=== PATIENT | male | born 2000 | race Caucasian/White ===

== ENCOUNTER → 2020-12-25 11:47 | Outpatient (CLI) | payer OTHER, SELFPAY ==
[2020-12-12 15:42] VITALS: BMI 24.0
--- NOTE | 2020-12-25 11:50 | ECHOD_ITS ---
Reason For Study: CHEST PAIN Procedure This was a 2D Doppler, Color Flow transthoracic echocardiogram. The exam was of adequate technical quality. Exam performed in department. Left Ventricle Normal LV size. Left ventricular systolic function is normal. The estimated ejection fraction is 60 %. No evidence for diastolic dysfunction. No regional wall motion abnormalities noted. Right Ventricle Normal RV size. Normal systolic function. Atria Normal left atrium. Normal right atrium. No doppler evidence for ASD. Mitral Valve There is no mitral annular calcification. Mild diffuse mitral valve thickening. Mild mitral valve prolapse. Trivial mitral valve insufficiency. Tricuspid Valve Normal tricuspid valve. Trivial tricuspid valve insufficiency. Right ventricular systolic pressure estimated to be 27 mmHg. Aortic Valve Trisinus/trileaflet aortic valve. Normal aortic valve. Pulmonic Valve Normal pulmonic valve. Trivial pulmonic valve insufficiency. Great Vessels Normal sized aortic root. Pericardium/Pleural No pericardial effusion. MMode/2D Measurements & Calculations LVIDd: 5.5 cm IVSd: 0.74 cm Ao root diam: 2.8 cm LVIDs: 3.7 cm LVPWd: 0.83 cm RVDd: 3.7 cm FS: 33.0 % LAV(MOD-bp): 43.8 ml LA A4 area: 15.9 cm2 LA dimension(2D): 2.3 cm LAV(MOD-bp) Indexed: 20.7 ml/m2 LAV(MOD-sp2): 41.5 ml LAV(MOD-sp4): 44.0 ml RA A4 area: 17.7 cm2 Time Measurements MV dec time: 0.12 sec Doppler Measurements & Calculations MV E max marcos: 117.3 cm/sec Lat Peak E' Marcos: 14.5 cm/sec Med Peak E' Marcos: 15.0 cm/sec MV A max marcos: 61.6 cm/sec E/E' lat: 8.1 E/E' med: 7.8 MV E/A: 1.9 Ao V2 max: 123.9 cm/sec LV V1 max: 108.9 cm/sec PA V2 max: 115.8 cm/sec Ao max P.1 mmHg LV V1 max P.7 mmHg TR max marcos: 244.6 cm/sec TR max P.9 mmHg ECHO/Echo Complete Interpretation Summary Left ventricular systolic function is normal. The estimated ejection fraction is 60 %. Mild diffuse mitral valve thickening. Mild mitral valve prolapse. Trivial mitral valve insufficiency. Trivial tricuspid valve insufficiency. Trivial pulmonic valve insufficiency. Right ventricular systolic pressure estimated to be 27 mmHg. No evidence for diastolic dysfunction. Ordering Physician: George Espionza Referring Physician: Rox Mehta Performed By: Nay López, THERON, RVT
--- NOTE | 2020-12-25 18:24 | STRESSREP_ITS ---
Stress Test Report Date: 12-25-2020 Procedure: Exercise tolerance test Indications: Chest pain Consent: Per the patient Procedure: The patient exercised on a Gregory protocol for 12 minutes completing stage IV achieving a peak heart rate of 181 bpm (90% predicted maximal heart rate) with a peak blood pressure 182/78 mmHg and a peak MET capacity of approximately 13 MET's. The baseline ECG demonstrated sinus bradycardia; septal CT of indeterminate age cannot be excluded; nonspecific T wave abnormality. The peak exercise ECG demonstrated no obvious ECG changes. There were no cardiac dysrhythmias pretest, during exercise, or recovery. The functional capacity was considered good. The patient had no complaint of chest discomfort during exercise or recovery. The examination was discontinued secondary to dyspnea; leg discomfort. Impression: 1. Technically adequate (percent predicted maximal heart rate greater than 85%) exercise tolerance test 2. Peak exercise ECG with no obvious ECG changes 3. There were no cardiac dysrhythmias during exercise or recovery This note was generated with [employer] software. It may contain incorrect words, spelling, and punctuation that were not noted in checking the note before signing.
== END ==
PROVIDERS: PCP Nurse Practitioner Family; Referring Provider Internal Medicine Cardiovascular Disease; Visit Provider Internal Medicine Cardiovascular Disease
DX: I77.4 Celiac artery compression syndrome (principal); R07.9 Chest pain, unspecified; K21.9 Gastro-esophageal reflux disease without esophagitis
CPT/HCPCS: 93017; 93306

== ENCOUNTER → 2021-05-16 08:03 | Outpatient (CLI) | payer OTHER, SELFPAY ==
--- NOTE | 2021-05-16 08:07 | CT_ITS ---
STUDY: CTA ABDOMEN AND PELVIS WITH CONTRAST REASON FOR EXAM: Male, 21 years old. 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 3-D reconstruction of the aorta and the major visceral branches was obtained. RADIATION DOSAGE (If Supplied By Facility): CTDIvol = ( 23.55 ) mGy, DLP = ( 623.66 ) mGycm TECHNIQUE: Transaxial images were obtained from the dome of the diaphragm to the symphysis pubis without oral contrast. IV 100mL Isovue-370 was administered. Sagittal and coronal images were reconstructed. Individualized dose optimization techniques were used for this CT. COMPARISON: None. FINDINGS: The visualized lung bases are unremarkable. The visualized portions of the heart are within normal limits. Normal liver. Normal gallbladder and extrahepatic biliary system. Normal spleen. Normal pancreas. Normal bilateral adrenal glands. Normal right kidney. Normal left kidney. Normal visualized stomach. Normal small intestine. Normal colon. The appendix is visualized and appears normal. Normal abdominal aorta. There are 2 right renal arteries. Normal inferior vena cava. Normal retroperitoneum. Normal urinary bladder. Normal abdominal wall. Normal osseous structures. CT/CT ANGIO ABD&PEL W/O&W/DYE IMPRESSION: Normal enhanced CT of the abdomen and pelvis. Electronically Signed: Larry Schilling MD at 10:01 EDT , Service support ,
== END ==
PROVIDERS: PCP Nurse Practitioner Family; Referring Provider Surgery Vascular Surgery; Visit Provider Surgery Vascular Surgery
DX: I70.213 Atherosclerosis of native arteries of extremities with intermittent claudication, bilateral legs (principal); I77.1 Stricture of artery; I77.4 Celiac artery compression syndrome
CPT/HCPCS: 74174; Q9967

== ENCOUNTER 2025-03-23 13:26 | Day surgery (SDC) | payer SELFPAY ==
--- NOTE | 2025-03-20 16:53 | PAT.ANESEVAL ---
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 When Was Last Pacemaker Check QUESTION #4 FULL TEXT: You/Your Family Experience fever (hyperthermia) with Anesthesia Last Oral Intake Last Oral intake: Last Oral Intake NPO since Meds taken in AM with sips of water? Meds patient instructed to take am of surgery PONV PONV - automation manager: PONV - automation manager Female No 03/20/25 10:23 HX of Motion Sickness No 03/20/25 10:23 HX of N/V After Surgery No 03/20/25 10:23 Non-Smoker Yes 03/20/25 10:23 Duration of Surgery greater No 03/20/25 10:23 than 60 minutes Number of Risk Factors 1 03/20/25 10:23 PONV Score Low Risk 03/20/25 10:23 Height & Weight Height & Weight: Anesthesia: Height & Weight Height 6 ft 2 in 01/26/25 14:41 Respiratory Assessment Respiratory Assessment - automation manager: Respiratory Tract Infection Hx - automation manager Hx Respiratory Tract Infection No 03/20/25 10:23 STOP Sleep Apnea STOP Sleep Apnea - automation manager: STOP Sleep Apnea - automation manager Hx Hypertension No 03/20/25 10:23 Hx Sleep Apnea No 03/20/25 10:23 CPAP BIPAP Do you snore loudly (louder No 03/20/25 10:23 than talking or can be heard Do you often feel tired/ No 03/20/25 10:23 fatigued/ sleepy during daytime? Has anyone observed you stop No 03/20/25 10:23 breathing during sleep? STOP Results Negative 03/20/25 10:23 QUESTION #5 FULL TEXT : Do you snore loudly (louder than talking or can be heard through closed doors)? 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 Specify any problems Hx of Preganancy in last 3 N/A 03/20/25 10:23 Months Nurse Filling Out Transfusion [email or web address] 03/20/25 10:23 & Questions: Date: 03/20/25 03/20/25 10:23 Time: 10:24 03/20/25 10:23 Patient unable to answer at this time (ie. confused, unrespo /Reproduction History /Reproductive History - automation manager: /Reproductive Hx- automation manager Hx Now Gestational Age (in weeks): EDC: Hx Hx Para Hx Section SAB PFSH Medical History (Updated 03/20/25 @ 10:26 by Blake Fischer) Anxiety Dietary restriction Cardiology follow-up encounter History of echocardiogram History of stress test Celiac artery compression syndrome Chest pain GERD (gastroesophageal reflux disease) Home Medications ?Medication ?Instructions ?Recorded ?Last Taken ?Type cetirizine 10 mg tablet (Zyrtec) 10 mg PO QDAY PRN allergy symptoms 01/26/25 Unknown History Allergy/AdvReac Type Severity Reaction Status Date / Time gluten Allergy Diarrhea Verified 03/20/25 10:21 Family History Grandmother CAD (coronary artery disease) Other Diabetes Hypertension Kidney disease Social History Smoking Status: Never smoker alcohol intake: never substance use type: does not use caffeine: Yes Type: carbonated beverages and coffee Audit: Pertinent Findings Pertinent Findings Stress test pertinent findings: Stress test 12/25/2020. Peak exercise ECG with no obvious ECG changes. There were no cardiac dysrhythmias during exercise or recovery. Echo (EF%) pertinent findings: Echo 12/25/2020. LV systolic function is normal. EF 60%. Mild mitral valve prolapse. No evidence of diastolic dysfunction. Recommendation Anesthesia Recommendation Anesthesia recommendation: OPTIMIZED for anesthesia
[2025-03-23] VITALS (9 sets, daily range): BP systolic 112–128; BP diastolic 58–76; PULSE 47–56; RESP 12–20; TEMP 36.6–36.7; O2SAT 97–100; BMI 25.2
[2025-03-23] MEDS: Lactated Ringers 1,000 ML 15 ML IV (13:54)
--- OUTSIDE RECORDS SUMMARY | 2025-03-23 13:58 | XMS RPT_ITS | CCD ---
Author Organization [facility] Care Team Providers Care Logistics Vice President Name Role Phone ADOLFOCORY Admitting Unavailable ADOLFOCORY Primary Care Unavailable ADOLFOCORY ROE Attending Unavailable ROX MACKEY Consulting Unavailable KEY, ROX Referring Unavailable PROVIDER, UNKNOWN Consulting Unavailable KEY, ROX Admitting Unavailable KEY, RXO Primary Care Unavailable KEY, ROX Consulting Unavailable KEY, ROX Attending Unavailable PROVIDER, UNKNOWN Consulting Unavailable Key CHIEF CLINICAL OFFICER-C, Rox Primary Care Provider [phone] Key CHIEF CLINICAL OFFICER-C, Rox Referring Provider Ilya CHIEF CLINICAL OFFICER-C, Erica Attending Provider Key CHIEF CLINICAL OFFICER, Rox Primary Care Unavailable Key CHIEF CLINICAL OFFICER, Rox Referring Unavailable Erica Caraballo Attending Unavailable Friend, Vinny Attending Unavailable Key CHIEF CLINICAL OFFICER, Rox Primary Care Unavailable Friend, Vinny Attending Unavailable Key CHIEF CLINICAL OFFICER, Rox Primary Care Unavailable Key CHIEF CLINICAL OFFICER, Rox Referring Unavailable Allergies Allergy Classification Reported Allergen(s) Allergy Type Date of Onset Reaction(s) Facility (1 source) Gluten Drug allergy (disorder) 03-20-2025 [facility] Repository Medications Current Medications Medication Drug Class(es) Dates Sig (Normalized) Sig (Original) cetirizine hydrochloride 10 mg oral tablet (1 source) Histamine-1 Receptor Antagonist Start: 01-26-2025 take 1 tablet by mouth once daily as needed Cetirizine (Zyrtec) 10 mg tablet Active 10 mg PO daily as needed January 26, 2025 12:00am famotidine 20 mg oral tablet (1 source) Histamine-2 Receptor Antagonist Start: 01-26-2025 take 1 tablet by mouth at bedtime Famotidine 20 mg tablet Active 20 mg PO AT BEDTIME 30 January 26, 2025 12:00am ibuprofen 200 mg oral tablet (1 source) Nonsteroidal Anti-inflammatory Drug Start: 12-09-2020 take 3 tablets by mouth every eight hours as needed Ibuprofen 200 mg tablet Active 600 mg PO Q8H as needed December 09, 2020 12:00am pantoprazole 40 mg delayed release oral tablet (1 source) Proton Pump Inhibitor Start: 01-26-2025 take 1 tablet by mouth once daily Pantoprazole 40 mg tablet,delayed release (DR/EC) Active 40 mg PO DAILY January 26, 2025 12:00am Completed/Discontinued Medications Medication Drug Class(es) Dates Sig (Normalized) Sig (Original) omeprazole 20 mg delayed release oral capsule (1 source) Proton Pump Inhibitor Start: 12-09-2020 End: 01-26-2025 take 1 capsule by mouth once daily Omeprazole 20 mg capsule,delayed release(DR/EC) Discontinued 20 mg PO DAILY December 09, 2020 12:00am January 26, 2025 2:33pm Problems Problem Classification Problem Date Documented Da te Episodic/Chronic Diabetes mellitus without complication (1 source) Type 2 diabetes mellitus without complications; Translations: [Type 2 diabetes mellitus without complications] Onset: 07-23-2024 Chronic Esophageal disorders (3 sources) Gastro-esophageal reflux disease without esophagitis; Translations: [Gastroesophageal reflux disease] Onset: 10-20-2024 12-09-2020 Chronic Essential hypertension (1 source) Essential (primary) hypertension; Translations: [Essential (primary) hypertension] Onset: 07-23-2024 Chronic Nonspecific chest pain (4 sources) Other chest pain; Translations: [Chest pain] Onset: 07-23-2024 Episodic Other circulatory disease (1 source) Celiac artery compression syndrome; Translations: [Celiac artery compression syndrome] Onset: 10-20-2024 Chronic Other circulatory disease (1 source) Celiac artery compression syndrome; Translations: [Celiac artery compression syndrome] 12-09-2020 Chronic Other gastrointestinal disorders (1 source) Constipation, unspecified; Translations: [Constipation, unspecified] Onset: 10-20-2024 Episodic Other lower respiratory disease (1 source) Dyspnea on exertion; Translations: [Other forms of dyspnea] 12-12-2020 Episodic Other screening for suspected conditions (not mental disorders or infectious disease) (3 sources) Encounter for screening for diseases of the blood and blood-forming organs and certain disorders involving the immune mechanism; Translations: [Encounter for screening for other metabolic disorders] Onset: 10-20-2024 Episodic Results Test Name Value Interpretation Reference Range Facility MR/PATRonaldo 03-20-2025 MR/PATHUMA [facility] Medical Records Department [address] [place] [address] PAT - Anesthesia 03/20/25 1653 MR#: [id number] Acct: [id number] Name: SURESH LARIOS Rep #: [id number] : 2000 From: Jessee Liang MD PCP: KALEIGH HarrisC Status:PRE SDC Y Race: C Location: EN Pre-Assessment Diagnosis/Proposed Procedure Planned Operative Procedure(s): EGD Anesthesia History Anesthesia History - brand director: Anesthesia History - brand director Hx Hospitalization No 03/20/25 10:23 Any Problems With Anesthesia No 03/20/25 10:23 Cholinesterase deficiency No 03/20/25 10:23 You/Your Family Experience No 03/20/25 10:23 fever (hyperthermia) with Relationship Recent Exposure to Contagious Disease Does patient have nerve No 03/20/25 10:23 stimulator Patient instructed to have device shut off --Does patient have Pacemaker or ICD? When Was Last Pacemaker Check QUESTION #4 FULL TEXT: You/Your Family Experience fever (hyperthermia) with Anesthesia Last Oral Intake Last Oral intake: Last Oral Intake NPO since Meds taken in AM with sips of water? Meds patient instructed to take am of surgery PONV PONV - brand director: PONV - brand director Female No 03/20/25 10:23 HX of Motion Sickness No 03/20/25 10:23 HX of N/V After Surgery No 03/20/25 10:23 Non-Smoker Yes 03/20/25 10:23 Duration of Surgery greater No 03/20/25 10:23 than 60 minutes Number of Risk Factors 1 03/20/25 10:23 PONV Score Low Risk 03/20/25 10:23 Height Weight Height Weight: Anesthesia: Height Weight Height 6 ft 2 in 01/26/25 14:41 Respiratory Assessment Respiratory Assessment - brand director: Respiratory Tract Infection Hx - brand director Hx Respiratory Tract Infection No 03/20/25 10:23 STOP Sleep Apnea STOP Sleep Apnea - brand director: STOP Sleep Apnea - brand director Hx Hypertension No 03/20/25 10:23 Hx Sleep Apnea No 03/20/25 10:23 CPAP BIPAP Do you snore loudly (louder No 03/20/25 10:23 than talking or can be heard Do you often feel tired/ No 03/20/25 10:23 fatigued/ sleepy during daytime? Has anyone observed you stop No 03/20/25 10:23 breathing during sleep? STOP Results Negative 03/20/25 10:23 QUESTION #5 FULL TEXT : Do you snore loudly (louder than talking or can be heard through closed doors)? Tobacco Use History Tobacco Use History - brand director: Tobacco Use History - brand director Tobacco Use Smoking Status Never smoker 03/20/25 10:23 Hx Tobacco Use No 03/20/25 10:23 Years Smoking Packs Smoked per Day Smoking Cessation Date was within the last 15 years Hx Smoking Cessation Date Hx Smoking Cessation Counseling Hematologic Medial History Hematologic Hx - brand director: Hematologic Medical Hx - proofer prepress Hx of Blood Transfusion No 03/20/25 10:23 Hx of Transfusion in last 3 No 03/20/25 10:23 Months Date of Last Transfusion (if within last 3 months) Ever experience any problems No 03/20/25 10:23 with transfusion(s)? Specify any problems Hx of Preganancy in last 3 N/A 03/20/25 10:23 Months Nurse Filling Out Transfusion [email or web address] 03/20/25 10:23 Questions: Date: 03/20/25 03/20/25 10:23 Time: 10:24 03/20/25 10:23 Patient unable to answer at this time (ie. confused, unrespo /Reproductio n History /Reproductiv e History - brand director: /Reproductiv e Hx- brand director Hx Now Gestational Age (in weeks): EDC: Hx Hx Para Hx Section SAB PFSH Medical History (Updated 03/20/25 @ 10:26 by Blake Fischer) Anxiety Dietary restriction Cardiology follow-up encounter History of echocardiogram History of stress test Celiac artery compression syndrome Chest pain GERD (gastroesophageal reflux disease) Home Medications ???Medication ???Instructions ???Recorded ???Last Taken ???Type cetirizine 10 mg tablet (Zyrtec) 10 mg PO QDAY PRN allergy symptoms 01/26/25 Unknown History Allergy/AdvReac Type Severity Reaction Status Date / Time gluten Allergy Diarrhea Verified 03/20/25 10:21 Family History Grandmother CAD (coronary artery disease) Other Diabetes Hypertension Kidney disease Social History Smoking Status: Never smoker alcohol intake: never substance use type: does not use caffeine: Yes Type: carbonated beverages and coffee Audit: Pertinent Findings Pertinent Findings Stress test pertinent findings: Stress test 12/25/2020. P (more content not included)... Normal [facility] Gastroenterology Visit Repor ton 01-26-2025 Gastroenterology Visit Report [facility] Gastroenterology [address] [place] [address] OFFICE VISIT Date of Service: 01/26/25 MR#: [id number] Acct: [id number] Name: SURESH LARIOS Rep #: [id number] : 2000 Provider: BETHANY verduzco Age/Sex: 24/M Location[place] [facility] Status: Signed Intake Vital Signs 12/12/20 15:42 01/26/25 14:41 Height 6 ft 2 in 6 ft 2 in Weight: 193 lb 6 oz BMI 24.8 BP 128/71 H Blood Pressure Location Lt brachial Position Sitting Pulse 54 L Pulse Source Monitor Pulse Oximetry (%) 95 Oxygen Delivery Method room air Intake Visit Reasons: Acid reflux Chief Complaint: abdominal pain Accompanied by: Allergies No Known Allergies Allergy (Verified 12/12/20 15:42) Medications ???Medication ???Instructions ???Recorded ???Confirmed ???Type ibuprofen 200 mg tablet 600 mg PO Q8H PRN 12/09/20 1 History cetirizine 10 mg tablet (Zyrtec) 10 mg PO QDAY PRN 01/26/25 5 History famotidine 20 mg tablet 20 mg PO QHS #30 tabs 01/26/25 Rx pantoprazole 40 mg tablet,delayed 40 mg PO DAILY #30 tabs 01/26/25 01/26/25 Rx release Nurse's Note: OV 01/26/25 Pt here to establish care with [facility]. Pt reports nausea, abdominal pain, gas, bloating and heartburn. He says the abdominal pain worsens when he has an empty stomach and when sitting. Tried omeprazole in the past and said it did seem to help. No prior hx of EGD or colonoscopy. Pt reports he was told he has a hiatal hernia. [facility] Medical History Celiac artery compression syndrome Chest pain GERD (gastroesophageal reflux disease) Family History Grandmother CAD (coronary artery disease) Other Diabetes Hypertension Kidney disease Social History Smoking Status: Never smoker alcohol intake: never substance use type: does not use caffeine: Yes Type: carbonated beverages and coffee HPI HPI Chief Complaint: abdominal pain Details: SURESH LARIOS, is a 24 M who presents to the office today for establishment with [facility] regarding concerns of hiatal hernia, epigastric abdominal pain, and constipation. He states that he has been under the care of a family chiropractor who has informed him of having a hiatal hernia and gluten sensitivity by exam. He states they were able to feel the hiatal hernia when bloated and put it back in place. He reports increased epigastric pain while sitting and having an empty stomach. He reports that eating relieves the pain for about 3 to 4 hours before it comes back. He reports taking omeprazole October to January this year and noted some improvement in symptoms. He reports nausea, worse in the AM, gas, and indigestion. He states that he has a history of constipation but now has complete BMs daily to every other day. He drinks plenty of water and takes a fiber supplement. He does eat a bowl of cereal before going to bed, after dinner. He denies difficulty chewing and swallowing, diarrhea, hematochezia, and melena. ROS Const Constitutional: Positive for fatigue; No chills, fever(s) or weight change Eyes Eyes: No change in vision ENT ENT: No abnormal hearing or difficulty swallowing Resp Respiratory: No cough Cardio Cardiology: No chest pain at rest, chest pain with exertion or leg pain with exertion Gastro GI: Positive for abdominal pain, bloating, constipation, heartburn, excessive flatus and nausea/dyspepsia; No belching, change in bowel habits, change in stool character, coffee ground emesis, cramping, diarrhea, difficulty swallowing, feeling full early, incontinent of stools, Vomiting blood/hematemesis, Blood in stool, loose stools, Black,tarry stools, pain with swallowing, vomiting or other Musc Musculoskeletal: No joint pain or leg pain with exertion Skin Skin: No yellowing of the eye or itchy eyes Neuro Neurology: No abnormal hearing Psych Psychiatric: No anxiety and No depression Endo Endocrine: Positive for fatigue; No cold intolerance, heat intolerance or weight change Aller/Imm Allergy/Immunologic: No food intolerance or itchy eyes Elvis/Lymp Hematologic/Lymphatic : No easy bleeding or easy bruising Exam Const General: cooperative, healthy appearing, comfortable and no acute distress Nutritional Appearance: average body habitus Orientation: alert and oriented x3 HENMT Head: normal to inspection Ears: hearing grossly normal bilaterally Eyes General: appearance normal, both eyes and all related structures Sclera: sclerae normal Neck Neck: normal visual inspection and full ROM Chest Chest palpation inspection: normal inspection of the chest Resp Effort Inspection: normal respiratory effo (more content not included)... Normal [facility] CBC + DIFFon 10-20-2024 Baso # 0.02 x10EE3/UL Normal 0.00 - 0.10 [facility] Comment on above: Performed By: #### 2 [id number] #### [facility],[address] [place] [address] Basophils/100 WBC (Bld) 0.3 % Normal 0.0 - 2.0 [facility] Comment on above: Performed By: #### 2 97542 #### [facility],[address] [place] [address] CBC + DIFF Normal [facility] Comment on above: Result Comment: CBC- COMPLETE BLOOD COUNT Performed By: #### 2 52532 #### [facility],[address] [place] [address] 39611 EO # 0.08 x10EE3/UL Normal 0.00 - 0.50 [facility] Comment on above: Performed By: #### 2 02185 #### [facility],[address] [place] [address] 39715 Eosinophils/100 WBC (Bld) 1.5 % Normal 0.0 - 7.0 [facility] Comment on above: Performed By: #### 2 30077 #### [facility],[address] [place] [address] Erythrocyte distribution width (RBC) [Ratio] 12.6 % Normal 12.0 - 15.6 [facility] Comment on above: Performed By: #### 2 55624 #### [place] [address] Hematocrit (Bld) [Volume fraction] 45.1 % Normal 40.0 - 52.0 [facility] Comment on above: Performed By: #### 2 15711 #### [place] [address] Hemoglobin (Bld) [Mass/Vol] 15.6 g/dL Normal 13.0 - 17.5 [facility] Comment on above: Performed By: #### 2 67893 #### [place] [address] Lymph # 1.85 x10EE3/UL Normal 0.80 - 2.80 [facility] Comment on above: Performed By: #### 2 93306 #### [place] [id number] Lymphocytes/100 WBC (Bld) 33.7 % Normal 20.0 - 45.0 [facility] Comment on above: Performed By: #### 2 75089 #### [place] [id number] MANUAL DIFF N/A Normal [facility] Comment on above: Performed By: #### 2 28578 #### [place] [id number] MCH (RBC) [Entitic mass] 29 pg Normal 27 - 33 [facility] Comment on above: Performed By: #### 2 92166 #### [facility],[address] [place] [address] 70351 MCHC 35 X10 3 Normal 32 - 36 [facility] Comment on above: Performed By: #### 2 51765 #### [facility],[address] [place] [address] 38719 MCV (RBC) [Entitic vol] 85 fL Normal 81 - 98 [facility] Comment on above: Performed By: #### 2 52383 #### [facility],[address] [place] [address] 36149 Webb # 0.37 x10EE3/UL Normal 0.20 - 1.00 [facility] Comment on above: Performed By: #### 2 88280 #### [facility],[address] [place] [address] 80672 MONOS % 6.8 % Normal 0.0 - 10.0 [facility] Comment on above: Performed By: #### 2 56328 #### [facility],[address] [place] [address] 71390 Morphology Sincere (Bld) [Interp] N/A Normal [facility] Comment on above: Performed By: #### 2 72212 #### [facility],[address] [place] [address] 09856 Neut # 3.18 x10EE3/UL Normal 1.50 - 7.10 [facility] Comment on above: Performed By: #### 2 55562 #### [facility],[address] [place] [address] 37320 Neutrophils/100 WBC (Bld) 57.8 % Normal 46.0 - 76.0 [facility] Comment on above: Performed By: #### 2 16512 #### [facility],[address] [place] [address] 55140 PLATELET 193 x10EE3/UL Normal 150 - 450 [facility] Comment on above: Performed By: #### 2 89033 #### [facility],[address] [place] [address] 47166 Platelet mean volume (Bld) [Entitic vol] 9.0 fL Normal 6.4 - 10.5 [facility] Comment on above: Result Comment: AUTO MATED DIFFERENTIAL Performed By: #### 2 37721 #### [facility],[address] [place] [address] RBC 5.31 x 10EE6/UL Normal 4.50 - 6.00 [facility] Comment on above: Performed By: #### 2 60314 #### [facility],[address] [place] [address] WBC 5.5 x 10EE3/UL Normal 4.5 - 10.8 [facility] Comment on above: Performed By: #### 2 08957 #### [facility],[address] [place] [address] CMP with eGFRon 10-20-2024 AGE 24 years Normal [facility] Comment on above: Performed By: #### 2 94917 ####[place] [id number] Albumin [Mass/Vol] 4.6 g/dL Normal 3.4 - 5.0 [facility] Comment on above: Performed By: #### 2 20855 ####[facility],[address] [place], [place] [id number] Albumin/Globulin [Mass ratio] 1.4 {ratio} Normal 0.9 - 1.6 [facility] Comment on above: Performed By: #### 2 54466 ####[place] [address] ALK PHOS 93 U/L Normal 46 - 116 [facility] Comment on above: Performed By: #### 2 82033 ####[place] [id number] ALT [Catalytic activity/Vol] 27 U/L Normal 16 - 63 [facility] Comment on above: Performed By: #### 2 49034 ####[facility],[address] [place] [address] 54835 Anion gap [Moles/Vol] 12 mmol/L Normal 10 - 20 [facility] Comment on above: Performed By: #### 2 65886 ####[facility],[address] [place] [address] 71183 AST [Catalytic activity/Vol] 20 U/L Normal 15 - 37 [facility] Comment on above: Performed By: #### 2 59206 ####[facility],[address] [place] [address] 75057 B/C RATIO 13 ratio Normal 0 - 30 [facility] Comment on above: Performed By: #### 2 18123 ####[facility],[address] [place] [address] 26422 Bilirubin [Mass/Vol] 0.6 mg/dL Normal 0.2 - 1.0 [facility] Comment on above: Performed By: #### 2 53952 ####[facility],[address] [place] [address] 34500 Calcium [Mass/Vol] 9.6 mg/dL Normal 8.5 - 10.1 [facility] Comment on above: Performed By: #### 2 40670 ####[facility],[address] [place] [address] 70342 Chloride [Moles/Vol] 103 mmol/L Normal 98 - 107 [facility] Comment on above: Performed By: #### 2 44467 ####[facility],[address] [place] [address] 73954 CMP with eGFR Normal [facility] Comment on above: Result Comment: COMP REHENSIVE METABOLIC PANEL Performed By: #### 2 72481 ####[facility],[address] [place] [address] 29150 CO2 [Moles/Vol] 30.0 mmol/L Normal 21.0 - 32.0 [facility] Comment on above: Performed By: #### 2 55268 ####[facility],[address] [place] [address] 23500 Creatinine [Mass/Vol] 0.94 mg/dL Normal 0.70 - 1.30 [facility] Comment on above: Performed By: #### 2 80754 ####[facility],[address] [place] [address] 83466 GFR/1.73 sq M.predicted among non-blacks MDRD (S/P/Bld) [Vol rate/Area] mL/min/{1.73_m2} Normal 60 - 999 [facility] Comment on above: Performed By: #### 2 29549 ####[place] [id number] Result Comment: ACCO RDING TO THE NATIONAL KIDNEY DISEASE EDUCATION PROGRAM(NKDE), A NORMAL eGFR IS A VALUE GREATER THAN OR EQUAL TO 60 ML/MIN/1.73 SQ METERS. CHRONIC KIDNEY DISEASE: <60mL/MIN/1.73 SQ METERS KIDNEY FAILURE: <15mL/MIN/1.73 SQ METERS THIS TEST SHOULD ONLY BE USED FOR PATIENTS 18 YEARS OF AGE AND OLDER. Globulin (S) [Mass/Vol] 3.3 g/dL Normal 1.5 - 3.8 [facility] Comment on above: Performed By: #### 2 16926 ####[facility],[address] [place] [address] 00695 Glucose [Mass/Vol] 87 mg/dL Normal 74 - 106 [facility] Comment on above: Performed By: #### 2 45465 ####[address] [address] Potassium [Moles/Vol] 4.3 mmol/L Normal 3.5 - 5.1 [facility] Comment on above: Performed By: #### 2 50472 ####[facility],[address] [place] [address] 92575 Protein [Mass/Vol] 7.9 g/dL Normal 6.4 - 8.2 [facility] Comment on above: Performed By: #### 2 11570 ####[facility],[address] [place] [address] 04742 Sodium [Moles/Vol] 141 mmol/L Normal 136 - 145 [facility] Comment on above: Performed By: #### 2 82777 ####[facility],[address] [place] [address] 14811 Urea nitrogen [Mass/Vol] 12 mg/dL Normal 7 - 18 [facility] Comment on above: Performed By: #### 2 36279 ####[facility],[address] [place] [address] 93814 LIPID PROFILEon 10-20-2024 Cholesterol [Mass/Vol] 157 mg/dL Normal 0 - 240 [facility] Comment on above: Performed By: #### 2 39018 #### [facility],[address] [place] [address] 48145 Cholesterol in HDL [Mass/Vol] 48 mg/dL Normal 40 - 60 [facility] Comment on above: Performed By: #### 2 65264 #### [facility],[address] [place] [address] 76180 Cholesterol in LDL [Mass/Vol] 82 mg/dL Normal 0 - 129 [facility] Comment on above: Performed By: #### 2 39348 #### [facility],[address] [place] [address] 69423 Cholesterol.total/Cho lesterol in HDL [Mass ratio] 3.3 {ratio} Normal 0.0 - 5.0 [facility] Comment on above: Performed By: #### 2 74967 #### [facility],[address] [place] [address] 89110 Lipid 1996 panel Normal [facility] Comment on above: Result Comment: LIPI D PROFILE Performed By: #### 2 13524 #### [facility],[address] [place] [address] 46081 Triglyceride [Mass/Vol] 133 mg/dL Normal 0 - 150 [facility] Comment on above: Performed By: #### 2 93046 #### [facility],[address] [place] [address] 52713 ED MED ADMINISTRATION DETAIL on 07-24-2024 ED MED ADMINISTRATION DETAIL Twister Doffer Medication Administration Record [address] [address] [id number] 07/23/2024 Patient: SURESH LARIOS Sex: Male : 2000 Age: 24y MEASUREMENTS: Wt: 83.9 kg, Ht/Rudy: 73.0 in, BMI: 24.41 ALLERGIES: No known drug allergies Medication Ordered Medication Administration Date/Time GI Cocktail PO Completed 23:23 07/23/2024 Jose Ramon OlivaPGuadalupe 1 of 2 Twister Doffer Medication Ordered Medication Administration Date/Time Order Comments: 23:23 07/23/2024: GI cockt ail will not scan. Orde r comp lete; medi catio n given to kellee nt. Beth Bach 2 of 2 Normal [facility] ED NURSES CLINICAL NOTEon ED NURSES CLINICAL NOTE Nurse Narrative Nurse Clinical Narrative [address] [address] [id number] 07/23/2024 Patient: SURESH LARIOS Sex: Male : 2000 Age: 24y Disposition: Discharge to Home Disposition Decision Time: 23:52 07/23/2024 Departure Time: 00:04 07/24/2024 TRIAGE Arrived by private vehicle. Historian: patient. Accompanied by family. Triage time: 21:07 07/23/2024. Acuity: LEVEL 2. Chief Complaint: CHEST PAIN and (Left sided chest pain, radiating slightly to left and right). This started today. Onset. (about 5 PM). The patient has had difficulty breathing. No sweating episodes, nausea, vomiting, fever or cough. SEPSIS SCREEN: NEGATIVE. SIRS criteria negative. -- 21:13 07/23/24 CHIKA Simmons R.N. 21:07/23/24. BP: 131/76 MAP: 94. HR: 50. RR: 16. O2 saturation: 99% Temperature: 97.7 F. Pain level now 4/10. -- 21:07/23/24 CHIKA Simmons R.N. Measurements: 21:07/23/24 Wt: 83.9 kg, Ht/Rudy: 73.0 in, BMI: 24.41 -- 21:07/23/24 CHIKA Simmons R.N. Medications: no known home medications -- 21:13 07/23/24 CHIKA Simmons R.N. Protonix 40 mg tablet,delayed release: 1 tablet once a day. Started 07/23/2024. Stopped 08/20/2024. -- 23:47 07/23/24 CHIKA Mata D.O.Updated through eRx -- 23:50 07/23/24 CHIKA Mata D.O. 1 of 5 Nurse Narrative Protonix 40 mg tablet,delayed release: 1 tablet once a day. Started 07/23/2024. Stopped 07/23/2024. -- 23:50 07/23/24 CHIKA Mata D.O. Protonix tablet,delayed release 40 40: 1 tablet once a day. -- 23:50 07/23/24 CHIKA Mata D.O. Allergies: no known drug allergies -- 21:10 07/23/24 CHIKA Simmons R.N. Problems: Hiatal Hernia -- 21:07/23/24 CHIKA Simmons R.N. Gastroesophageal Reflux Disease -- 21:10 07/23/24 CHIKA Simmons R.N. Hypertension -- 21:10 07/23/24 CHIKA Simmons R.N. ADDITIONAL SURGERIES: no known surgical history -- 21:13 07/23/24 CHIKA Simmons R.N. History 21:07/23/24. SOCIAL HX: Never smoker. No alcohol use or drug use. The patient has not traveled outside the [place] Infectious disease exposure: No infectious disease exposure. ABUSE ASSESSMENT: The patient answered yes to the question(s) Do you feel safe in your home? and no to the question(s) Are you afraid to go home?. SELF HARM ASSESSMENT: Self harm assessment was performed. The patient answered no to the question(s) Have you recently felt down, depressed, or hopeless? and Do you have thoughts of harming or killing yourself?. FALL RISK ASSESSMENT: Fall risk assessment completed. No risk factors identified. -- 21:13 07/23/24 CHIKA Simmons R.N. PHYSICAL ASSESSMENT 21:07 07/23/24. BP: 131/76 MAP: 94. HR: 50. RR: 16. O2 saturation: 99% Temperature: 97.7 F. Pain level now 11/23. -- 00:13 07/24/24 CHIKA Manriquez R.N. 21:12 07/23/24. HR: 53 bpm. O2 saturation: 100%. -- 00:13 07/24/24 CHIKA Manriquez R.N. 2 of 5 Nurse Narrative 21:25 07/23/24. Ambulatory to room. GENERAL / NEURO / PSYCH: Alert. Oriented X 4. HEENT: Mucous membranes are pink. RESPIRATORY: Respirations not labored. Chest nontender. Breath sounds within normal limits. CVS: Normal sinus rhythm noted. Heart sounds within normal limits. Pulses within normal limits. EXTREMITIES: No lower extremity edema. SKIN: Skin is warm and dry. Skin is non-tender. -- 00:14 07/24/24 CHIKA Manriquez R.N. NURSING PROGRESS NOTES 21:07 07/23/24. BP: 131/76 MAP: 94. HR: 50. RR: 16. O2 saturation: 99% Temperature: 97.7 F. Pain level now 11/23. -- 03:27 07/24/24 CHIKA Manriquez R.N. 21:08 07/23/24. Site #1 started via IV in the right antecubital space with an 18g angiocath with aseptic technique and good blood return; 1 attempt. Blood drawn: rainbow set tube(s). Labeled in the presence of the patient and sent to the lab. Saline lock flushed with 5 mL saline. -- 21:12 07/23/24 EST Michael Morales E.M.T.-P. 21:12 07/23/24. HR: 53 bpm. O2 saturation: 100%. -- 03:27 07/24/24 EST Rox Manriquez R.N. 21:13 07/23/24. 12-LEAD EKG: EKG time: (21:05 07/23/2024). 12-Lead EKG was ordered, performed by a proced tech and shown to the ED physician. -- 21:13 07/23/24 EST Michael Morales E.M.T.-P. 21:17 07/23/24. HR: 53 bpm. O2 saturation: 100%. -- 03:27 07/24/24 EST Rox Manriquez R.N. 21:21 07/23/24. BP: 121/74 MAP: 88 mmHg. HR: 50 bpm. -- 03:27 07/24/24 EST Rox Manriquez R.N. 21:22 07/23/24. HR: 56 bpm. O2 saturation: 100%. -- 03:27 07/24/24 EST Rox Manriquez R.N. 21:25 07/23/24. ED physician at the patient's bedside. -- 21:25 07/23/24 EST Naz Simmons R.N. 21:27 07/23/24. HR: 65 bpm. O2 saturation: 100%. -- 03:27 07/24/24 EST Rox Manriquez R.N. 21:32 07/23/24. HR: 51 bpm. O2 saturation: 98%. -- 03:27 07/24/24 EST Rox Manriquez R.N. 21:36 07/23/24. BP: 133/85 MAP: 93 mmHg. HR: 50 bpm. -- 03:27 07/24/24 EST Rox (more content not included)... Normal [facility] ED ORDER SHEET (CPOE ONLY)on 07-24-2024 ED ORDER SHEET (CPOE ONLY) Order Sheet Order Sheet [facility] [address] [place] [address] [id number] 07/23/2024 Patient: SURESH LARIOS Sex: Male : 2000 Age: 24y MEASUREMENTS: Wt: 83.9 kg, Ht/Rudy: 73.0 in, BMI: 24.41 ALLERGIES: No known drug allergies MEDICATION/IV/DRIP/FL UID ORDERS Order Description Priority Entered Acknowledged Completed GI Cocktail PO(Maalox Oral 30 22:59 07/23/2024 23:17 23:23 mL, lidocaine Lidocaine Viscous 2 Cory Mata, 07/23/2024 07/23/2024 % mucosal solution 5 mL, D.O. Michael Oliva, hyoscyamine ODT (0.125 mg E.M.T.-P. E.M.T.-P. disintegrating tablet) 0.125 mg) (NOW x1) Order Comments: 23:23 07/23/2024: GI cocktail will not scan. Order complete; medication given to patient. Beth OlivaTGuadalupe-PGuadalupe LAB ORDERS Order Description Priority Entered Acknowledged Collected Completed CBC w Diff Stat Stat 21:30 07/23/2024 21:45 07/23/2024 21:45 07/23/2024 Michael Holcomb Bryan Parker, D.O. E.M.T.-P. EGuadalupeMGuadalupeT.-P. Troponin-I Stat Stat 21:30 07/23/2024 21:45 07/23/2024 21:45 07/23/2024 Michael Holcomb Bryan Parker, D.O. E.M.T.-P. E.M.T.-P. 1 of 2 Order Sheet D-Dimer Stat Stat 21:30 07/23/2024 21:45 07/23/2024 21:45 07/23/2024 Michael Holcomb Bryan Parker, D.O. E.M.T.-P. E.M.T.-P. EKG - ED Stat Stat 21:30 07/23/2024 21:45 07/23/2024 21:45 07/23/2024 Michael Holcomb Bryan Parker, D.O. E.MGuadalupeT.-P. E.M.T.-PGuadalupe CMP Stat Stat 21:30 07/23/2024 21:45 07/23/2024 21:45 07/23/2024 Michael Holcomb Bryan Parker, D.O. E.M.T.-P. E.M.T.-PGuadalupe DIAGNOSTIC STUDY ORDERS Order Description Priority Entered Acknowledged Completed Chest 2V Stat Stat 21:30 07/23/2024 21:45 05:52 Cory Mata, 07/23/2024 07/24/2024 Rox Muir E.M.T.-PGuadalupe RGuadalupeNGuadalupe Reason for Study: Chest Pain STAFF ORDERS Order Description Priority Entered Acknowledged Collected Completed IV Saline Lock 21:30 07/23/2024 21:45 07/23/2024 21:45 07/23/2024 Michael Holcomb Bryan Parker, D.O. E.M.T.-Nataliia Medina-PGuadalupe [Electronically signed by Cory Mata D.O. (07/24/2024 02:04 EST)] 2 of 2 Normal [facility] ED PHYSICIAN CLINICAL REPORT on 07-24-2024 ED PHYSICIAN CLINICAL REPORT Narrative Physician Clinical Narrative [address] [address] [id number] 07/23/2024 Patient: SURESH LARIOS Sex: Male : 2000 Age: 24y Disposition: Discharge to Home Disposition Decision Time: 23:52 07/23/2024 Measurements Wt: 83.9 kg, Ht/Rudy: 73.0 in, BMI: 24.41 Initial Vital Sign Measured Time BP MAP HR RR O2Sat ETCO2 Temp Pain GCS RTS 21:07 07/23/2024 131/76 94 50 16 99% 97.7 F 4 Time Seen: 21:18 07/23/2024. Arrived- By private vehicle. Historian- patient. Independent historian- family. HISTORY OF PRESENT ILLNESS Chief Complaint: CHEST PAIN. This started just prior to arrival 5:00 pm. he was driving and he had substernal chest discomfort. Says a 4/10 seems to make it better worse feels like a tightness. He gets some shortness of breath he said it his left arm felt chilled. He still has a discomfort he presents to the emergency department. She has been under stress lately with his job he states he has a history of hypertension diabetes cholesterol he does not smoke. No nausea or vomiting. REVIEW OF SYSTEMS CONSTITUTIONAL: No fever or chills. RESPIRATORY: No cough. CVS: No pedal edema. NEUROLOGICAL: No fainting episodes. PAST HISTORY 1 of 9 Narrative Gastroesophageal Reflux Disease Hiatal Hernia Hypertension Surgeries: no known surgical history Medications: no known home medications Allergies: no known drug allergies SOCIAL HISTORY Never smoker. No alcohol use. ADDITIONAL NOTES The nursing notes have been reviewed. PHYSICAL EXAM Appearance: Alert. Oriented X3. No acute distress. Eyes: Eyes normal inspection. ENT: Ears normal. Nose normal. Neck: Normal inspection. CVS: Normal heart rate. Heart sounds normal. Respiratory: No respiratory distress. Breath sounds normal. Chest nontender. Abdomen: Soft and nontender. No mass. Skin: Skin warm and dry. Normal skin color. Normal skin turgor. Extremities: Extremities exhibit normal ROM. Neuro: Oriented X 3. No motor deficit. No sensory deficit. LABS, X-RAYS, AND EKG 2 of 9 Narrative 12-LEAD EKG: EKG time: 21:05 07/23/2024. Normal sinus rhythm. Rate: 52. Normal P waves. Normal ANKUR. Q waves in lead V1 and V2. No ST elevation. Interpretation time: 21:30 07/23/2024. Laboratory Tests: CBC + DIFF Final KIERRA: 07/23/2024 21:08:00 EST MsgRcvd: 07/23/2024 22:05 EST Lab Test Result Reference Status Received Comments 07/23/2024 22:05 CBC-COMPLETE CBC + DIFF Final EST BLOOD COUNT 07/23/2024 22:05 WBC 6.4 x 10/UL 4.5 - 10.8 Final EST 07/23/2024 22:05 RBC 5.23 x 10/UL 4.50 - 6.00 Final EST 07/23/2024 22:05 HEMOGLOBIN 15.3 g/dl 13.0 - 17.5 Final EST 07/23/2024 22:05 HEMATOCRIT 44.8 % 40.0 - 52.0 Final EST 07/23/2024 22:05 MCV 86 fl 81 - 98 Final EST 07/23/2024 22:05 MCH 29 pg 27 - 33 Final EST 07/23/2024 22:05 MCHC 34 X10 3 32 - 36 Final EST 07/23/2024 22:05 RDW/CV 13.0 % 12.0 - 15.6 Final EST 07/23/2024 22:05 PLATELET 183 x10/UL 150 - 450 Final EST 3 of 9 Narrative 07/23/2024 22:05 AUTOMATED MPV 8.0 fl 6.4 - 10.5 Final EST DIFFERENTIAL 38.2 % 07/23/2024 22:05 NEUT % 46.0 - 76.0 Final Below low normal EST 53.2 % 07/23/2024 22:05 LYMPH % 20.0 - 45.0 Final Above high normal EST 07/23/2024 22:05 MONOS % 6.3 % 0.0 - 10.0 Final EST 07/23/2024 22:05 EO % 2.0 % 0.0 - 7.0 Final EST 07/23/2024 22:05 BASO % 0.3 % 0.0 - 2.0 Final EST 3.41 x10/UL 07/23/2024 22:05 Lymph # 0.80 - 2.80 Final Above high normal EST 07/23/2024 22:05 Neut # 2.45 x10/UL 1.50 - 7.10 Final EST 07/23/2024 22:05 Webb # 0.41 x10/UL 0.20 - 1.00 Final EST 07/23/2024 22:05 EO # 0.13 x10/UL 0.00 - 0.50 Final EST 07/23/2024 22:05 Baso # 0.02 x10/UL 0.00 - 0.10 Final EST 07/23/2024 22:05 MANUAL DIFF N/A New Order EST 07/23/2024 22:05 MORPHOLOGY N/A New Order EST CMP with eGFR Final 4 of 9 Narrative KIERRA: 07/23/2024 21:08:00 EST MsgRcvd: 07/23/2024 22:08 EST Lab Test Result Reference Status Received Comments COMPREHENSIVE 07/23/2024 CMP with eGFR Final METABOLIC 22:08 EST PANEL 07/23/2024 SODIUM 142 mmol/l 136 - 145 Final 22:08 EST 07/23/2024 POTASSIUM 3.9 mmol/L 3.5 - 5.1 Final 22:08 EST 07/23/2024 CHLORIDE 101 mmol/L 98 - 107 Final 22:08 EST 07/23/2024 CO2 31.1 mmol/L 21.0 - 32.0 Final 22:08 EST 107 mg/dl 07/23/2024 GLUCOSE Above high 74 - 106 Final 22:08 EST normal 07/23/2024 BUN 16 mg/dl 7 - 18 Final 22:08 EST 07/23/2024 CREATININE 1.19 mg/dl 0.70 - 1.30 Final 22:08 EST 07/23/2024 AST/SGOT 16 U/L 15 - 37 Final 22:08 EST 07/23/2024 ALK PHOS 77 U/L 46 - 116 Final 22:08 EST 07/23/2024 CALCIUM 9.1 mg/dl 8.5 - 10.1 Final 22:08 EST (more content not included)... Normal [facility] ED SUPER BILLon 07-24-2024 ED SUPER BILL [address] [address] [id number] 07/23/2024 Patient: SURESH LARIOS Sex: Male : 2000 Age: 24y Item Professional Category Description Facility Code Code Quantity Fee Total Nurse/E/M EMERGENCY 170411 1 $0.00 $0.00 DEPARTMENT VISIT MODERATE SEVERITY (60757-93) Grand Total $0.00 Providers Cory Mata D.O. Chief Complaint CHEST PAIN. Principal Diagnosis Chest pain characterized as pressure. ICD-10 Codes 1 of 2 [facility] R07.89: Other chest pain 2 of 2 Normal [facility] ED VISIT SUMMARYon ED VISIT SUMMARY Visit Overview Visit Overview [address] [address] [id number] 07/23/2024 Patient: SURESH LARIOS Sex: Male : 2000 Age: 24y 07/24/2024 05:57 AM EST ED Arrival:21:04 07/23/2024 EST Status: Recent Travel:no Language:eng Adv Directive: Isolation Status: Ethnicity:N Fall Risk:no risk Infectious Disease Exposure:no Measurements:6'1 / 185.4 Self-Harm Status:risk Sepsis Screen:negative cm 185.0 lb / 83.9 kg Chief Complaint:CHEST PAIN, (about 5 PM), and (Left sided chest pain, radiating slightly to left and right) ALLERGIES No Known Drug Allergies HOME MEDICATIONS None PAST MEDICAL HISTORY / PROBLEMS Gastroesophageal Reflux Disease 1 of 3 Visit Overview Hiatal Hernia Hypertension PAST SURGICAL HISTORY No Surgeries SOCIAL HISTORY Smoking status: No Alcohol use: No Drug use: No ED COURSE MEDICATIONS GIVEN IN EMERGENCY DEPARTMENT IV SITE INFORMATION INTAKE OUTPUT REASSESMENT (most recent) 22:15 07/23/24. RESPIRATORY: No respiratory distress. Breath sounds normal. CVS: Normal sinus rhythm noted. SKIN: Skin color within normal limits. Friend at bedside. ED physician at the patient's bedside. VITAL SIGNS First Vitals Last Vitals Temp 21:07 07/23/24 97.7 F Temp 00:01 07/24/24 BP 21:07 07/23/24 131/76 BP 00:01 07/24/24 134/74 HR 21:07 07/23/24 50 HR 00:01 07/24/24 48 RR 21:07 07/23/24 16 RR 00:01 07/24/24 O2 Sat 21:07 07/23/24 99% O2 Sat 00:01 07/24/24 Pain 21:07 07/23/24 4 Pain 00:01 07/24/24 ETCO2 21:07 07/23/24 ETCO2 00:01 07/24/24 GCS 21:07 07/23/24 GCS 00:01 07/24/24 2 of 3 Visit Overview First Vitals Last Vitals RTS 21:07 07/23/24 RTS 00:01 07/24/24 PROCEDURES NURSING INTERVENTIONS LABS / STUDIES LABS / STUDIES ORDERED CBC w Diff Chest 2V CMP D-Dimer EKG - ED Troponin-I CLINICAL IMPRESSION CHEST PAIN CHARACTERIZED PRESSURE 3 of 3 Normal [facility] ED VITALS FLOW SHEETon 07-24 ED VITALS FLOW SHEET Vitals Vital Sign Flow Sheet [place] [address] [place] [address] [id number] 07/23/2024 [id number] Sex: Male : 2000 Age: 24y Measurements Wt: 83.9 kg, Ht/Rudy: 73.0 in, BMI: 24.41 Measured Time BP MAP HR RR O2Sat ETCO2 Temp Pain GCS RTS 00:01 07/24/2024 134/74 85 48 23:59 07/23/2024 58 98% 23:54 07/23/2024 52 97% 23:52 07/23/2024 120/80 82 48 23:49 07/23/2024 58 96% 23:44 07/23/2024 52 97% 23:39 07/23/2024 63 98% 23:37 07/23/2024 135/78 89 56 23:34 07/23/2024 54 97% 23:29 07/23/2024 51 97% 23:24 07/23/2024 54 96% 23:21 07/23/2024 129/78 98 53 23:19 07/23/2024 48 95% 23:14 07/23/2024 54 98% 23:09 07/23/2024 51 98% 1 of 3 Vitals Measured Time BP MAP HR RR O2Sat ETCO2 Temp Pain GCS RTS 23:06 07/23/2024 138/84 93 49 23:04 07/23/2024 50 95% 22:59 07/23/2024 52 98% 22:54 07/23/2024 48 98% 22:51 07/23/2024 132/73 83 49 22:49 07/23/2024 54 99% 22:44 07/23/2024 49 99% 22:39 07/23/2024 50 98% 22:36 07/23/2024 129/80 90 50 22:34 07/23/2024 50 99% 22:29 07/23/2024 49 100% 22:24 07/23/2024 51 98% 22:21 07/23/2024 125/78 88 48 22:19 07/23/2024 49 98% 22:14 07/23/2024 52 97% 22:09 07/23/2024 52 99% 22:06 07/23/2024 133/86 94 47 22:04 07/23/2024 57 99% 21:59 07/23/2024 50 97% 21:54 07/23/2024 55 98% 21:52 07/23/2024 131/78 86 48 21:49 07/23/2024 58 100% 21:42 07/23/2024 51 98% 21:37 07/23/2024 54 100% 21:36 07/23/2024 133/85 93 50 2 of 3 Vitals Measured Time BP MAP HR RR O2Sat ETCO2 Temp Pain GCS RTS 21:32 07/23/2024 51 98% 21:27 07/23/2024 65 100% 21:22 07/23/2024 56 100% 21:21 07/23/2024 121/74 88 50 21:17 07/23/2024 53 100% 21:12 07/23/2024 53 100% 21:07 07/23/2024 131/76 94 50 16 99% 97.7 F 4 3 of 3 Normal [facility] CBC + DIFFon 07-23-2024 Baso # 0.02 x10EE3/UL Normal 0.00 - 0.10 [facility] Comment on above: Performed By: #### 2 [id number] #### [facility],[address] [place] [address] Basophils/100 WBC (Bld) 0.3 % Normal 0.0 - 2.0 [facility] Comment on above: Performed By: #### 2 [id number] #### [facility],[address] [place] [address] CBC + DIFF Normal [facility] Comment on above: Result Comment: CBC- COMPLETE BLOOD COUNT Performed By: #### 2 45454 #### [facility],[address] [place] [address] EO # 0.13 x10EE3/UL Normal 0.00 - 0.50 [facility] Comment on above: Performed By: #### 2 99306 #### [facility],[address],[place] [address] Eosinophils/100 WBC (Bld) 2.0 % Normal 0.0 - 7.0 [facility] Comment on above: Performed By: #### 2 65968 #### [facility],[address] [place], [place] [phone] Erythrocyte distribution width (RBC) [Ratio] 13.0 % Normal 12.0 - 15.6 [facility] Comment on above: Performed By: #### 2 50654 #### [facility],[address] [place], [place] [phone] Hematocrit (Bld) [Volume fraction] 44.8 % Normal 40.0 - 52.0 [facility] Comment on above: Performed By: #### 2 07241 #### [facility],[address] [place] [address] Hemoglobin (Bld) [Mass/Vol] 15.3 g/dL Normal 13.0 - 17.5 [facility] Comment on above: Performed By: #### 2 92326 #### [facility],[address] [place] [address]45 Lymph # 3.41 x10EE3/UL High 0.80 - 2.80 [facility] Comment on above: Performed By: #### 2 98529 #### [facility],[address] [place] [address]272 Lymphocytes/100 WBC (Bld) 53.2 % High 20.0 - 45.0 [facility] Comment on above: Performed By: #### 2 64474 #### [facility],[address] [place] [address] MANUAL DIFF N/A Normal [facility] Comment on above: Performed By: #### 2 24274 #### [facility],[address] [place] [address] MCH (RBC) [Entitic mass] 29 pg Normal 27 - 33 [facility] Comment on above: Performed By: #### 2 67874 #### [facility],[address] [place] [address] MCHC 34 X10 3 Normal 32 - 36 [facility] Comment on above: Performed By: #### 2 31181 #### [facility],[address] [place] [address]14 MCV (RBC) [Entitic vol] 86 fL Normal 81 - 98 [facility] Comment on above: Performed By: #### 2 32720 #### [facility],[address] [place] [address] Webb # 0.41 x10EE3/UL Normal 0.20 - 1.00 [facility] Comment on above: Performed By: #### 2 84301 #### [facility],[address] [place] [address] MONOS % 6.3 % Normal 0.0 - 10.0 [facility] Comment on above: Performed By: #### 2 14936 #### [facility],[address] [place], [place] [phone] Morphology Sincere (Bld) [Interp] N/A Normal [facility] Comment on above: Performed By: #### 2 82400 #### [facility],[address] [place] [address] Neut # 2.45 x10EE3/UL Normal 1.50 - 7.10 [facility] Comment on above: Performed By: #### 2 40334 #### [facility],[address] [place], [place] [phone] Neutrophils/100 WBC (Bld) 38.2 % Low 46.0 - 76.0 [facility] Comment on above: Performed By: #### 2 47553 #### [facility],[address] [place], [place] [phone] PLATELET 183 x10EE3/UL Normal 150 - 450 [facility] Comment on above: Performed By: #### 2 67391 #### [facility],[address] [place] [address] Platelet mean volume (Bld) [Entitic vol] 8.0 fL Normal 6.4 - 10.5 [facility] Comment on above: Result Comment: AUTO MATED DIFFERENTIAL Performed By: #### 2 15852 #### [facility],[address] [place] [address] RBC 5.23 x 10EE6/UL Normal 4.50 - 6.00 [facility] Comment on above: Performed By: #### 2 99114 #### [facility],[address] [place] [address] WBC 6.4 x 10EE3/UL Normal 4.5 - 10.8 [facility] Comment on above: Performed By: #### 2 32376 #### [facility],[address] [place] [address] CHEST 2 VIEWSon 07-23-2024 CHEST 2 VIEWS [place] [address] Patient: SURESH LARIOS Phone#: : [phone] Age: 24 Gender: M Pt. Type: ER Account: [id number] Location: [facility] Ordering: CORY MATA Exam Date: 07/23/2024/21:55 Family Phys: ROX MACKEY Charge Code: 406414 Physician: [place] Order #: [id number] Dose#: PROCEDURE: X-RAY CHEST 2 VIEWS COMPARISON: [facility], XR, CHEST 1 VIEW, 08/20/2020, 21:51. INDICATIONS: Chest pain. FINDINGS: LUNGS: Normal. No significant pulmonary parenchymal abnormalities. VASCULATURE: Normal. Unremarkable pulmonary vasculature. CARDIAC: Normal. No cardiac silhouette abnormality or cardiomegaly. MEDIASTINUM: Normal. No visible mass or adenopathy. PLEURA: Normal. No effusion or pleural thickening. BONES: Normal. No fracture or visible bony lesion. OTHER: Negative. CONCLUSION: No acute disease. No significant change has occurred. Dictated by: Bita Hanson MD on 07/24/2024 at 11:16 Approved by: Bita Hanson MD on 07/24/2024 at 11:17 Normal [facility] CMP with eGFRon 07-23-2024 AGE 24 years Normal [facility] Comment on above: Performed By: #### 2 37448 ####[facility],[address] [place] [address] 41995 Albumin [Mass/Vol] 4.5 g/dL Normal 3.4 - 5.0 [facility] Comment on above: Performed By: #### 2 60141 ####[facility],[address] [place] [address]184 Albumin/Globulin [Mass ratio] 1.4 {ratio} Normal 0.9 - 1.6 [facility] Comment on above: Performed By: #### 2 65724 ####[facility],[address] [place] [address]48[address] ALK PHOS 77 U/L Normal 46 - 116 [facility] Comment on above: Performed By: #### 2 98114 ####[facility],[address] [place] [address] 71166 ALT [Catalytic activity/Vol] 21 U/L Normal 16 - 63 [facility] Comment on above: Performed By: #### 2 14642 ####[facility],[address] [place] [address]244 Anion gap [Moles/Vol] 14 mmol/L Normal 10 - 20 [facility] Comment on above: Performed By: #### 2 68110 ####[facility],[address] [place] [address] 09969 AST [Catalytic activity/Vol] 16 U/L Normal 15 - 37 [facility] Comment on above: Performed By: #### 2 11694 ####[facility],[address] [place] [address] 63532 B/C RATIO 13 ratio Normal 0 - 30 [facility] Comment on above: Performed By: #### 2 10844 ####[facility],[address] [place] [address] 97947 Bilirubin [Mass/Vol] 0.6 mg/dL Normal 0.2 - 1.0 [facility] Comment on above: Performed By: #### 2 59669 ####[facility],[address] [place] [address] 81068 Calcium [Mass/Vol] 9.1 mg/dL Normal 8.5 - 10.1 [facility] Comment on above: Performed By: #### 2 55102 ####[facility],[address] [place] [address] 96141 Chloride [Moles/Vol] 101 mmol/L Normal 98 - 107 [facility] Comment on above: Performed By: #### 2 70226 ####[facility],[address] [place] [address] 46464 CMP with eGFR Normal [facility] Comment on above: Result Comment: COMP REHENSIVE METABOLIC PANEL Performed By: #### 2 [id number] ####[facility],[address] [place] [address]408 CO2 [Moles/Vol] 31.1 mmol/L Normal 21.0 - 32.0 [facility] Comment on above: Performed By: #### 2 98650 ####[facility],[address] [place] [address]83 Creatinine [Mass/Vol] 1.19 mg/dL Normal 0.70 - 1.30 [facility] Comment on above: Performed By: #### 2 58648 ####[facility],[address] [place] [address] 24367 GFR/1.73 sq M.predicted among non-blacks MDRD (S/P/Bld) [Vol rate/Area] mL/min/{1.73_m2} Normal 60 - 999 [facility] Comment on above: Performed By: #### 2 16114 ####[facility],[address] [place], [place] [id number] Result Comment: ACCO RDING TO THE NATIONAL KIDNEY DISEASE EDUCATION PROGRAM(NKDE), A NORMAL eGFR IS A VALUE GREATER THAN OR EQUAL TO 60 ML/MIN/1.73 SQ METERS. CHRONIC KIDNEY DISEASE: <60mL/MIN/1.73 SQ METERS KIDNEY FAILURE: <15mL/MIN/1.73 SQ METERS THIS TEST SHOULD ONLY BE USED FOR PATIENTS 18 YEARS OF AGE AND OLDER. Globulin (S) [Mass/Vol] 3.3 g/dL Normal 1.5 - 3.8 [facility] Comment on above: Performed By: #### 2 49812 ####[place] [address] Glucose [Mass/Vol] 107 mg/dL High 74 - 106 [facility] Comment on above: Performed By: #### 2 23656 ####[place] [id number] Potassium [Moles/Vol] 3.9 mmol/L Normal 3.5 - 5.1 [facility] Comment on above: Performed By: #### 2 77670 ####[address] [address] Protein [Mass/Vol] 7.8 g/dL Normal 6.4 - 8.2 [facility] Comment on above: Performed By: #### 2 12179 ####[facility],[address] [place] [address]191 Sodium [Moles/Vol] 142 mmol/L Normal 136 - 145 [facility] Comment on above: Performed By: #### 2 38212 ####[address] [address] Urea nitrogen [Mass/Vol] 16 mg/dL Normal 7 - 18 [facility] Comment on above: Performed By: #### 2 86191 ####[address] [address] D-DIMER, QUANTITATIVEon 12-0 D-DIMER QUANT <200 Normal 0 - 230 [facility] Comment on above: Performed By: #### 2 90345 #### [facility],[address] [place] [address] D-DIMER, QUANTITATIVE Normal [facility] Comment on above: Result Comment: ONEAL T D-DIMER Performed By: #### 2 77761 #### [facility],[address] [place] [address] TROPONINon 07-23-2024 HS TROPONIN <4.0 Normal 0.0 - 76.2 [facility] Comment on above: Performed By: #### 2 06310 #### [facility],[address] [place] [address]253 EBV IgG Antibodyon 9 EBV VCA IgG 0.2 AI Normal [facility] Comment on above: Performed By: #### E BVG #### [facility] Routine Lab [address] [place], [place] [address] EBV VCA IgG, Qual Negative Normal Negative [facility] Comment on above: Performed By: #### E BVG #### [facility] Routine Lab [address] [place], [place] [address] Vital Signs Date Time Vital Sign Value Performing Clinician Mik white 01-26-2025 14:41-0400 Body height 187.96 cm Rox Mackey CHIEF CLINICAL OFFICER-C Work Phone: [facility] 01-26-2025 14:41-0400 Body mass index (BMI) [Ratio] 24.8 kg/m2 Rox Mackey CHIEF CLINICAL OFFICER-C Work Phone: [facility] 01-26-2025 14:41-040 Body weight 87.71 kg Rox Mackey CHIEF CLINICAL OFFICER-C Work Phone: [facility] 01-26-2025 14:41-0400 Diastolic blood pressure 71 mm[Hg] Rox Mackey CHIEF CLINICAL OFFICER-C Work Phone: [facility] 01-26-2025 14:41-0400 Heart rate 54 /min Rox Mackey CHIEF CLINICAL OFFICER-C Work Phone: [facility] 01-26-2025 14:41-0400 SaO2% (BldA) [Mass fraction] 95 % Rox Mackey CHIEF CLINICAL OFFICER-C Work Phone: [facility] 01-26-2025 14:41-0400 Systolic blood pressure 128 mm[Hg] Rox Mackey CHIEF CLINICAL OFFICER-C Work Phone: [facility] Encounters Encounter Date Encounter Type Care Provider Facility Start: 03-23-2025 ambulatory Vinny Deer Facility :[facility] Start: 01-26-2025 End: 01-26-2025 Patient encounter procedure Erica Caraballo NP-C -[facility] Work Phone: Start: 01-26-2025 End: 01-26-2025 ambulatory Rox Mackey CHIEF CLINICAL OFFICER-C Work Phone: [facility] Work Phone: Start: 10-20-2024 End: 10-20-2024 ambulatory ROX MACKEY [facility] Start: 10-20-2024 End: 10-20-2024 Encounter for general adult medical examination without abnormal findings ROX MACKEY [facility] Start: 07-23-2024 End: 07-24-2024 Emergency department patient visit CORY MATA [facility] Payers Date Payer Category Payer Unknown [id number] 2025 Self-pay 2025 Unknown [id number] 2000 Unknown [id number] [id number] [id number] 2000 Unknown [id number] [id number] [id number] Unknown [id number] 2.16.8 [id number] Unknown [id number] 2.16.8 [id number] Unknown [id number] 2.16.8 [id number] Social History Date Type Detail Facility Start: 12-12-2020 Tobacco smoking stat us NHIS Never smoked tobacco (finding) [facility] Start: 2000 Sex Assigned At Male [facility] Clinical Note 07-24-2024 Note Date & Type Note Facility 07-24-2024 Note Discharge Instructio ns Discharge Summary [address] [address] [id number] 07/23/2024 Patient: SURESH LARIOS Sex: Male : 2000 Age: 24y Thank you for visiting [facility]. You have been evaluated today by Cory Mata D.O. for the following condition(s): Principal Diagnosis Chest pain characterized as pressure. INSTRUCTIONS Follow-up with: REAGAN Harris,COTTONSEED MEAT PRESSER, SPA DIRECTOR-C, [facility], Phone: [phone], [address] [place] [address]. Follow up in two days. Call for an appointment. (follow-up with Cori Mackey for an appointment call in the morning. 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 Aponte try taking the Protonix and see if that helps. return if any problems or concerns.). You have been given the following additional information: Uncertain Causes of Chest Pain Patient Signature Facility E Mail System Administrator Date/Time 1 of 4 Discharge Instructions General Instructions with ExitWriter [address] [address] [id number] 07/23/2024 Patient: SURESH LARIOS Sex: Male : 2000 Age: 24y Thank you for visiting [facility]. You have been evaluated today by Cory Mata D.O. for the following condition(s): Principal Diagnosis Chest pain characterized as pressure. INSTRUCTIONS Follow-up with: Rox Mackey, MSN,COTTONSEED MEAT PRESSER, SPA DIRECTOR-C, [facility], Phone: [phone], [address] [place] [address], [place] [address]. Follow up in two days. Call for an appointment. (follow-up with Cori Mackey for an appointment call in the morning. 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 Aponte try taking the Protonix and see if that helps. return if any problems or concerns.). ADDITIONAL INFORMATION 2 of 4 Discharge Instructions Uncertain Causes of Chest Pain Chest pain can happen for a number of reasons. Sometimes the cause can't be determined. If your condition does not seem serious, and your pain does not appear to be coming from your heart, your healthcare provider may recommend watching it closely. Sometimes the signs of a serious problem take more time to appear. Many problems not related to your heart can cause chest pain. These include: Musculoskeletal. Costochondritis is an inflammation of the tissues around the ribs that can occur from trauma or overuse injuries, or a strain of the muscles of the chest wall Respiratory. Pneumonia, collapsed lung (pneumothorax), or inflammation of the lining of the chest and lungs (pleurisy) Gastrointestinal. Esophageal reflux, heartburn, ulcers, or gallbladder disease Anxiety and panic disorders Nerve compression and inflammation Rare miscellaneous problems such as aortic aneurysm (a swelling of the large artery coming out of the heart) or pulmonary embolism (a blood clot in the lungs) Home care After your visit, follow these recommendations: Rest today and avoid strenuous activity. Take any prescribed medicine as directed. 3 of 4 Discharge Instructions Be aware of any recurrent chest pain and notice any changes Follow-up care Follow up with your healthcare provider if you do not start to feel better within 24 hours, or as advised. Call 911 Call 911 if any of these occur: A change in the type of pain: if it feels different, becomes more severe, lasts longer, or begins to spread into your shoulder, arm, neck, jaw or back Shortness of breath or increased pain with breathing Weakness, dizziness, or fainting Rapid heart beat Crushing sensation in your chest When to seek medical advice Call your healthcare provider right away if any of the following occur: Cough with dark colored sputum (phlegm) or blood Fever of 100.4F (38C) or higher, or as directed by your healthcare provider Swelling, pain or redness in one leg 4 of 4 [facility] Evaluation note Note Date & Type Note Facility Evaluation note Diagnosis Onset Date Resolution GERD (gastroesophageal reflux disease) acute January 26, 2025 2:03pm [facility] Work Phone: Reason for referral (narrative) Note Date & Type Note Facility Reason for referral (narrative) No reason for referral information available [facility] Work Phone: Summary Purpose Family History No Family History Records Found Relationship Condition Age at Onset Recorded Date/T maria Not Specified Diabetes mellitus Unknown Kidney disorder Unknown Hypertension Unknown grandmother Coronary artery disease Unknown Advance Directives No Advanced Directives Records FoundNo Advanced Directives Records FoundNo Advanced Directives Records Found Chief Complaint and Reason for Visit Chief Complaint Admit Date Acid reflux January 26, 2025 2:03 pm Reason for Visit Admit Date GERD (gastroesophageal reflux disease) J une 2024 2:03pm Additional Source Comments (unrecognized sect ion and content) No Status Records FoundNo Status Records FoundNo Status Records Found INFORMATION SOURCE (unrecogn ized section and content) DATE CREATED AUTHOR 03/04/2019 [facility] DATE CREATED AUTHOR AUTHOR'S ORGANIZ ATION 11/18/2024 [facility] DATE CREATED AUTHOR AUTHOR'S ORGANIZ ATION 03/23/2025 [facility] Care Teams (unrecognized sec tion and content) Team Status: Active Member Role Status Dates BETHANY Harris NP Primary Care Provider Active Team Status: Inactive Member Role Status Dates BETHANY Harris NP Primary Care Provider Active Start: January 26, 2025 End: January 26, 2025 BETHANY Harris NP Referring Provider Active S tart: January 26, 2025 End: January 26, 2025 BETHANY Mccartney Attending Provider Active S tart: January 26, 2025 End: January 26, 2025 Goals (unrecognized section and content) Goals may be documented in a n alternate section FOR RECORDS PERTAINING TO PATIENTS WHO ARE OR HAVE BEEN ENROLLED IN A CHEMICAL DEPENDENCY/SUBSTANCEABUSE PROGRAM, SOME INFORMATION MAY BE OMITTED. This clinical summary was aggregated from multiple sources. Caution should be exercised in using it in the provision of clinical care. This summary normalizes information from multiple sources, and as a consequence, information in this document may materially change the coding, format and clinical context of patient data. In addition, data may be omitted in some cases. CLINICAL DECISIONS SHOULD BE BASED ON THE PRIMARY CLINICAL RECORDS. [facility] [email or web address] [facility]. provides no warranty or guarantee of the accuracy or completeness of information in this document.
--- NOTE | 2025-03-23 14:09 | HP.PCM_ITS ---
[facility] - General General Date of Admission: 03/23/25 Date of Service: 03/23/25 Chief Complaint: abdominal pain HPI Narrative SURESH LARIOS, is a 25 M who presents Chief Complaint: abdominal pain SURESH LARIOS, is a 24 M who presents regarding concerns of hiatal hernia, epigastric abdominal pain, and constipation. He states that he has been under the care of a family chiropractor who has informed him of having a hiatal hernia and gluten sensitivity by exam. He states they were able to feel the hiatal hernia when bloated and put it back in place. He reports increased epigastric pain while sitting and having an empty stomach. He reports that eating relieves the pain for about 3 to 4 hours before it comes back. He reports taking omeprazole October to January this year and noted some improvement in symptoms. He reports nausea, worse in the AM, gas, and indigestion. He states that he has a history of constipation but now has complete BMs daily to every other day. He drinks plenty of water and takes a fiber supplement. He does eat a bowl of cereal before going to bed, after dinner. He denies difficulty chewing and swallowing, diarrhea, hematochezia, and melena. COUNTS INCLUDE 234 BEDS AT THE [facility] Medical History Anxiety Dietary restriction Cardiology follow-up encounter History of echocardiogram History of stress test Celiac artery compression syndrome Chest pain GERD (gastroesophageal reflux disease) Home Medications ?Medication ?Instructions ?Recorded ?Last Taken ?Type cetirizine 10 mg tablet (Zyrtec) 10 mg PO QDAY PRN all ergy symptoms 01/26/25 03/09/25 History Allergy/AdvReac Type Severity Reaction Status Date / Time gluten Allergy Diarrhea Verified 03/23/25 13:45 Family History Grandmother CAD (coronary artery disease) Other Diabetes Hypertension Kidney disease Social History Smoking Status: Never smoker alcohol intake: never substance use type: does not use caffeine: Yes Type: carbonated beverages and coffee ROS Constitutional Constitutional: Denies fatigue, fever(s), poor appetite, weight gain or weight loss Gastrointestinal Gastrointestinal: Denies belching, bloating, change in bowel habits, change in stool character, chewing difficulty, coffee ground emesis, constipation, cramping, diarrhea, dyspepsia, dysphagia, early satiety, excessive flatus, fecal incontinence, heartburn, hematemesis, hematochezia, hemorrhoids, loose stools, melena, nausea, odynophagia, rectal bleeding, tenesmus, vomiting or weight changes Vital Signs Vital Signs Vital Signs: 03/23/25 13:45 03/23/25 13:45 Temperature 97.8 F Temperature Source Temporal Pulse Rate 52 L Respiratory Rate 12 Respiratory Pattern Normal Blood Pressure 128/76 H Blood Pressure Mean 93 Blood Pressure Source Monitor Blood Pressure Position Semi-Fowlers Blood Pressure Location Left Arm Pulse Ox 100 Oxygen Delivery Method Room Air Weight Weight: 196 lb 3.382 oz Body Mass Index (BMI) 25.2 Physical Exam Const alert, oriented x3, no apparent distress and healthy appearing General Appearance: cooperative GI normal to inspection, nondistended, normoactive bowel sounds, soft to palpation, non-tender and non-distended Percussion: normal to percussion Rectal Exam: deferred Assessment & Plan Assessment/Plan (1) Abdominal pain: QUALIFIERS: Abdominal location: epigastric Qualified Code(s): R10.13 - Epigastric pain (2) Celiac artery compression syndrome: (3) Chest pain: (4) GERD (gastroesophageal reflux disease): QUALIFIERS: Esophagitis presence: esophagitis presence not specified Qualified Code(s): K21.9 - Gastro-esophageal reflux disease without esophagitis PLAN: Assessment and Plan Assessment and Plan (1) GERD (gastroesophageal reflux disease): Status: Acute Qualifiers: Esophagitis presence: esophagitis presence not specified Qualified Code(s): K21.9 - Gastro-esophageal reflux disease without esophagitis (2) Abdominal pain: Status: Acute Qualifiers: Abdominal location: epigastric Qualified Code(s): R10.13 - Epigastric pain Medications: New pantoprazole 40 mg PO DAILY 30 tabs 3RF famotidine 20 mg PO QHS 30 tabs 3RF Plan SURESH LARIOS, is a 24 M who presents to the office today for establishment with [facility] regarding concerns of hiatal hernia, epigastric abdominal pain, and constipation. Reinforced eating hygiene, no meals 2hrs before bed, remain upright after eating for at least 1hr if hiatal hernia is suspected. Add dietary fiber when able. * pantoprazole 40mg PO daily 30minutes before eating * famotidine 20mg PO QHS * schedule EGD * office FU 1wk after EGD
--- NOTE | 2025-03-23 14:11 | PRE.ANES_ITS ---
ASA Classification* ASA Classification ASA Classification: 2 Assessment & Plan Anesthesia* Anesthesia Assessment Anesthesia Assessment: Discussed sedation and/or anesthesia options, risks, benefits, and alternatives with patient/parents/legal guardian/POA. Questions invited. The patient/parents/legal guardian/POA seems to understand and agrees to proceed with anesthesia plan. Reviewed the physical assessment, medical history, allergy history and patient home medications list prior to surgery/procedure/anesthetic and documented any changes. Performed airway and anesthesia risk assessments. Anesthesia Type Anesthesia Type: MAC History Source History Obtained from:: Patient and Chart Anesthesia Focused Assessment* Temperature: 97.8 F Pulse Rate: 52 Blood Pressure: 128/76 Respiratory Rate: 12 Pulse Ox: 100 Oxygen Delivery Method: Room Air Airway Assessment Mouth opens: >3 cm Mallampati Score: II Teeth Condition: Caps/Crowns (Patient has 1 left lower crown. It is tight.) Neck Range of motion (ROM): Full ROM Labs Anesthesia Preop lab: CBC CHEMISTRY COAG Pre-Assessment Diagnosis/Proposed Procedure Planned Operative Procedure(s): EGD Anesthesia History Anesthesia History - sourcing consultant: Anesthesia History - sourcing consultant Hx Hospitalization No 03/20/25 10:23 Any Problems With Anesthesia No 03/20/25 10:23 Cholinesterase deficiency No 03/20/25 10:23 You/Your Family Experience No 03/20/25 10:23 fever (hyperthermia) with Relationship Recent Exposure to Contagious No 03/23/25 13:45 Disease Does patient have nerve No 03/20/25 10:23 stimulator Patient instructed to have device shut off --Does patient have Pacemaker No 03/23/25 13:45 or ICD? When Was Last Pacemaker Check QUESTION #4 FULL TEXT: You/Your Family Experience fever (hyperthermia) with Anesthesia Last Oral Intake Last Oral intake: Last Oral Intake NPO since 22:00 03/23/25 13:45 Meds taken in AM with sips of water? Meds patient instructed to take am of surgery PONV PONV - sourcing consultant: PONV - sourcing consultant Female No 03/20/25 10:23 HX of Motion Sickness No 03/20/25 10:23 HX of N/V After Surgery No 03/20/25 10:23 Non-Smoker Yes 03/20/25 10:23 Duration of Surgery greater No 03/20/25 10:23 than 60 minutes Number of Risk Factors 1 03/20/25 10:23 PONV Score Low Risk 03/20/25 10:23 Height & Weight Height & Weight: Anesthesia: Height & Weight Height 6 ft 2 in 03/23/25 13:45 Weight: 89 kg 03/23/25 13:45 Body Mass Index (BMI) 25.2 03/23/25 13:45 Respiratory Assessment Respiratory Assessment - sourcing consultant: Respiratory Tract Infection Hx - sourcing consultant Hx Respiratory Tract Infection No 03/20/25 10:23 STOP Sleep Apnea STOP Sleep Apnea - sourcing consultant: STOP Sleep Apnea - sourcing consultant Hx Hypertension No 03/20/25 10:23 Hx Sleep Apnea No 03/20/25 10:23 CPAP BIPAP Do you snore loudly (louder No 03/20/25 10:23 than talking or can be heard Do you often feel tired/ No 03/20/25 10:23 fatigued/ sleepy during daytime? Has anyone observed you stop No 03/20/25 10:23 breathing during sleep? STOP Results Negative 03/20/25 10:23 QUESTION #5 FULL TEXT : Do you snore loudly (louder than talking or can be heard through closed doors)? Tobacco Use History Tobacco Use History - sourcing consultant: Tobacco Use History - sourcing consultant Tobacco Use Smoking Status Never smoker 03/20/25 10:23 Hx Tobacco Use No 03/20/25 10:23 Years Smoking Packs Smoked per Day Smoking Cessation Date was within the last 15 years Hx Smoking Cessation Date Hx Smoking Cessation Counseling Hematologic Medial History Hematologic Hx - sourcing consultant: Hematologic Medical Hx - field service technician Hx of Blood Transfusion No 03/20/25 10:23 Hx of Transfusion in last 3 No 03/20/25 10:23 Months Date of Last Transfusion (if within last 3 months) Ever experience any problems No 03/20/25 10:23 with transfusion(s)? Specify any problems Hx of Preganancy in last 3 N/A 03/20/25 10:23 Months Nurse Filling Out Transfusion [email or web address] 03/20/25 10:23 & Questions: Date: 03/20/25 03/20/25 10:23 Time: 10:24 03/20/25 10:23 Patient unable to answer at this time (ie. confused, unrespo /Reproduction History /Reproductive History - sourcing consultant: /Reproductive Hx- sourcing consultant Hx Now Gestational Age (in weeks): EDC: Hx Hx Para Hx Section SAB Active Medications Active Medications: Current Medications Generic Name Dose Route Start Last Admin Trade Name Freq PRN Reason Stop Dose Admin Lactated Ringer's 1,000 mls @ 15 mls/hr 03/23/25 13:45 03/23/25 13:54 IV 15 mls/hr .Q48H MARSHALL Administration PFSH Medical History Anxiety Dietary restriction Cardiology follow-up encounter History of echocardiogram History of stress test Celiac artery compression syndrome Chest pain GERD (gastroesophageal reflux disease) Home Medications ?Medication ?Instructions ?Recorded ?Last Taken ?Type cetirizine 10 mg tablet (Zyrtec) 10 mg PO QDAY PRN all ergy symptoms 01/26/25 03/09/25 History Allergy/AdvReac Type Severity Reaction Status Date / Time gluten Allergy Diarrhea Verified 03/23/25 13:45 Family History Grandmother CAD (coronary artery disease) Other Diabetes Hypertension Kidney disease no surgical history Social History Smoking Status: Never smoker alcohol intake: never substance use type: does not use caffeine: Yes Type: carbonated beverages and coffee Review of Systems (Anesthesia) ROS Narrative System reviewed and no additional complaints, except as documented.
--- NOTE | 2025-03-23 14:30 | EGD_PTH ---
PATIENT: SURESH LARIOS LOC: EN U#:[id number] AGE/SX: 25/M ROOM: RE03/23/[address]: Dr. Vinny Menjivar DO : 2000 BED: DIS: 03/23/2025 SPEC #: [id number] RECD: 03/23/25 16:53 STATUS: JAVIER REJennifer #: [id number] KIERRA: 03/23/25 14:[address]: Vinny Menjivar DEPT: SURGICAL PATHOLOGY RECD BY: Ayan Bruno ENTERED: 03/26/25 11:02 SP TYPE: EGD BIOPSY OTHR DR: Rox Mehta, SLAT BASKET MAKER-C Tissues: A - Duodenum, NOS B - Gastric mucous membrane Procedures: Surgery Specimen Level IV HEADER OPERATION: EGD with biopsies PRE-OP DIAGNOSIS: GERD TISSUE SUBMITTED: A- Duodenum biopsy, B- Gastric body biopsy MICROSCOPIC DIAGNOSIS A. Duodenum, biopsy: - Rickie gland hyperplasia, mild acute inflammation, and gastric mucin cell metaplasia, suggestive of peptic injury. - Negative for increased intraepithelial lymphocytes. B. Gastric body, biopsy: - Oxyntic mucosa with features of reactive gastropathy. - Negative for Helicobacter-like organisms (H&E). MICROSCOPIC DESCRIPTION Slides are reviewed. GROSS DESCRIPTION A. Received in fixative is one container labeled with the patient's name and designated Duodenum biopsy. The specimen consists of three irregular fragments of light wells soft tissue that measure 0.2 to 0.6 cm. The specimen is totally submitted in one cassette. B. Received in fixative is one container labeled with the patient's name and designated Gastric body biopsy. The specimen consists of three irregular fragments of light wells soft tissue that measure 0.1 to 0.9 cm. Smallest fragment may not survive processing. The specimen is totally submitted in one cassette. CO 03/26/2025 CPT:34302k4
--- NOTE | 2025-03-23 15:22 | PCM.POST.ANE ---
Anesthesia: Postop Eval I Current Vital Signs Temperature: 97.9 F Pulse Rate: 56 Blood Pressure: 117/58 Respiratory Rate: 20 Pulse Ox: 99 Assessment Airway patent: Yes Spontaneous unlabored respirations: Yes nausea: No Vomiting: No Anesthesia Complication: No Fluid Hydration Crystalloid volume administer (ml): 200 Total IV fluid infused: 200 Progress Note Anesthesia document: Postop Eval 1 completed: Yes
--- NOTE | 2025-03-23 15:24 | OP.EGD_ITS ---
Patient Name: Damion Cardona Procedure Date: 03/23/2025 2:52 PM Date of : 2000 Age: 25 Procedure: Upper GI endoscopy Indications: Epigastric abdominal pain, Dyspepsia Providers: Vinny Menjivar DO Referring MD: Rox Mehta Medicines: Monitored Anesthesia Care Patient Profile: This is a 25 year old male. Refer to note in patient chart for documentation of history and physical. Patient has symptoms of chronic abdominal distention, chronic left lower quadrant abdominal pain, chronic epigastric abdominal pain and acute dyspepsia. Complications: No immediate complications. Procedure: Pre-Anesthesia Assessment: - Prior to the procedure, a History and Physical was performed, and patient medications and allergies were reviewed. The patient is competent. The risks and benefits of the procedure and the sedation options and risks were discussed with the patient. All questions were answered and informed consent was obtained. Patient identification and proposed procedure were verified by the physician in the pre-procedure area. Mental Status Examination: alert and oriented. Airway Examination: normal oropharyngeal airway and neck mobility. Respiratory Examination: clear to auscultation. CV Examination: normal. Prophylactic Antibiotics: The patient does not require prophylactic antibiotics. Prior Anticoagulants: The patient has taken no anticoagulant or antiplatelet agents except for NSAID medication. ASA Grade Assessment: II - A patient with mild systemic disease. After reviewing the risks and benefits, the patient was deemed in satisfactory condition to undergo the procedure. The anesthesia plan was to use monitored anesthesia care (MAC). Immediately prior to administration of medications, the patient was re-assessed for adequacy to receive sedatives. The heart rate, respiratory rate, oxygen saturations, blood pressure, adequacy of pulmonary ventilation, and response to care were monitored throughout the procedure. The physical status of the patient was re-assessed after the procedure. After obtaining informed consent, the endoscope was passed under direct vision. Throughout the procedure, the patient's blood pressure, pulse, and oxygen saturations were monitored continuously. The Endoscope was introduced through the mouth, and advanced to the fourth part of the duodenum. Small bowel enteroscopy was deemed necessary. The upper GI endoscopy was accomplished without difficulty. The patient tolerated the procedure well. Scope In: 3:09:54 PM Scope Out: 3:14:03 PM Total Procedure Duration Time 0 hours 4 minutes 9 seconds Findings: The examined esophagus was normal. Patchy mildly erythematous mucosa without bleeding was found in the gastric body. Biopsies were taken with a cold forceps for histology. Verification of patient identification for the specimen was done. Estimated blood loss was minimal. Biopsies were taken with a cold forceps for Helicobacter pylori testing. Verification of patient identification for the specimen was done. Estimated blood loss was minimal. Patchy mildly erythematous mucosa without active bleeding and with no stigmata of bleeding was found in the duodenal bulb. Biopsies were taken with a cold forceps for histology. Verification of patient identification for the specimen was done. Estimated blood loss was minimal. Impression: - Normal esophagus. - Erythematous mucosa in the gastric body. Biopsied. - Erythematous duodenopathy. Biopsied. Recommendation: - Discharge patient to home. - Resume previous diet. - Continue present medications. - Await pathology results. - Repeat upper endoscopy for surveillance based on pathology results. Procedure Code(s): --- Professional --- 49828, Small intestinal endoscopy, enteroscopy beyond second portion of duodenum, not including ileum; with biopsy, single or multiple CPT copyright 2021 [employer]. All rights reserved. The codes documented in this report are preliminary and upon meeting manager review may be revised to meet current compliance requirements. Vinny Menjivar DO 03/23/2025 3:23:37 PM This report has been signed electronically. Number of Addenda: 0 Note Initiated On: 03/23/2025 2:52 PM
--- NOTE | 2025-03-23 15:24 | OP.PROVAT_ITS ---
03/23/2025 Rox Mehta Re : Upper GI endoscopy procedure for Damion Cardona Gabrielar Tyson This procedure was performed on Sunday, March 23, 2025. My impressions and recommendations are as follows: Impressions : - Normal esophagus. - Erythematous mucosa in the gastric body. Biopsied. - Erythematous duodenopathy. Biopsied. Recommendations : - Discharge patient to home. - Resume previous diet. - Continue present medications. - Await pathology results. - Repeat upper endoscopy for surveillance based on pathology results. My findings are described in the full procedure note, which is enclosed. If I can be of further assistance, please feel free to contact me at . Sincerely, Vinny Menjivar, 03/23/2025 3:23:37 PM This report has been signed electronically.
--- NOTE | 2025-03-23 17:33 | POSTOPAN2_ITS ---
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 Spontaneous unlabored Yes 03/23/25 15:22 LICENSED EMBALMER SUPERVISOR.[email or web address] respirations Mental status nausea No 03/23/25 15:22 LICENSED EMBALMER SUPERVISOR.CSIR Vomiting No 03/23/25 15:22 LICENSED EMBALMER SUPERVISOR.CSIR Anesthesia Postop Eval I: Fluid Summary Crystalloid volume administer 200 03/23/25 15:22 LICENSED EMBALMER SUPERVISOR.CSIR (ml) Colloids volume administered ( ml) Blood Product volume administered (ml) Total IV fluid infused 200 03/23/25 15:22 LICENSED EMBALMER SUPERVISOR.CSIR Anesthesia Postop Eval I: Summary Notes Anesthesia Complication No 03/23/25 15:22 LICENSED EMBALMER SUPERVISOR.CSIR Anesthesia Complication Comment: Post-operative progress note Anesthesia: Postop Eval II Evaluation Mental status: Awake and Calm Pain Level: 0 nausea: No Vomiting: No Complications Anesthesia Complication: No
--- NOTE | 2025-03-23 17:33 | PCM.POSTANE2 ---
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 Spontaneous unlabored Yes 03/23/25 15:22 PAYROLL [email or web address] respirations Mental status nausea No 03/23/25 15:22 PAYROLL [email or web address].[email or web address] Vomiting No 03/23/25 15:22 PAYROLL [email or web address].[email or web address] Anesthesia Postop Eval I: Fluid Summary Crystalloid volume administer 200 03/23/25 15:22 PAYROLL [email or web address] (ml) Colloids volume administered ( ml) Blood Product volume administered (ml) Total IV fluid infused 200 03/23/25 15:22 PAYROLL [email or web address].[email or web address] Anesthesia Postop Eval I: Summary Notes Anesthesia Complication No 03/23/25 15:22 PAYROLL [email or web address].[email or web address] Anesthesia Complication Comment: Post-operative progress note Anesthesia: Postop Eval II Evaluation Mental status: Awake and Calm Pain Level: 0 nausea: No Vomiting: No Complications Anesthesia Complication: No
== END 2025-03-23 16:06 | disposition home or self-care (01) ==
LOC: EN 13:29 → AC 13:30
PROVIDERS: PCP Nurse Practitioner Family; Referring Provider Nurse Practitioner Family; Visit Provider Internal Medicine Gastroenterology
PROC: 0DJ08ZZ Inspection of Upper Intestinal Tract, Via Natural or Artificial Opening Endoscopic (ICD-10-PCS; CPT 43235; principal; 2025-03-23 14:25)
DX: R10.13 Epigastric pain (principal); K21.9 Gastro-esophageal reflux disease without esophagitis; R07.9 Chest pain, unspecified; Z79.899 Other long term (current) drug therapy; I77.4 Celiac artery compression syndrome; K29.80 Duodenitis without bleeding
CPT/HCPCS: 44361; 88305; J2405